=== PATIENT | female | born 1970 | race Caucasian/White ===

== ENCOUNTER 2016-12-04 18:42 | Emergency (ER) | payer MEDICAID ==
[~2016-12-04] VITALS: Ht 154.9 cm; Wt 65.8 kg
[2016-12-04 18:42] VITALS: BP 120/91; PULSE 74; RESP 18; TEMP 98.9; O2SAT 96
[2016-12-04] MEDS ORDERED: DIPHENHYDRAMINE INJ 50 MG/ML VIAL IVP ONE (19:15)
[2016-12-04] MEDS ORDERED: MORPHINE 4 MG/ML INJ. SYRINGE IVP ONE (19:15)
[2016-12-04 19:37] LABS: BASOPHILS % (AUTO) 0.6 % (0.0-2.0); EOSINOPHILS # (AUTO) 0.1 K/uL (0.0-0.4); EOSINOPHILS % (AUTO) 0.7 % (0.0-4.0); HEMOGLOBIN 9.8 g/dL (12.0-16.0); LYMPHOCYTES % (AUTO) 27.2 % (20.5-51.5); MEAN CORPUSCULAR HEMOGLOBIN 23 pg (27-31); MEAN CORPUSCULAR HGB CONC 31 % (32-36); MEAN CORPUSCULAR VOLUME 75 fL (79.0-98.0); MONOCYTES # (AUTO) 0.3 K/uL (0.0-1.0); MONOCYTES % (AUTO) 3.4 % (1.7-9.3); NEUTROPHILS # (AUTO) 5.1 K/uL (1.8-7.7); NEUTROPHILS % (AUTO) 68.1 % (40.0-70.0); PLATELET COUNT (AUTO) 337 K/uL (130-430); RED BLOOD CELL COUNT(AUTO) 4.29 MIL/uL (4.2-6.2); RED CELL DISTRIBUTION WIDTH 16.9 % (9.0-15.0); WHITE BLOOD COUNT (AUTO) 7.5 K/uL (4.8-10.8)
[2016-12-04 19:40] LABS: ANION GAP 9 (5-15); CHLORIDE 103 mmol/L (98-107); CREATININE 0.93 mg/dL (0.55-1.30); GLUCOSE 123 mg/dL (70-99); SODIUM SERUM 135 mmol/L (136-145); UREA NITROGEN, BLOOD 13 mg/dL (8-21)
[2016-12-04 19:41] LABS: PROTHROMBIN TIME 10.4 SECS (9.5-12.5)
[2016-12-04 19:42] LABS: GFR AFRICAN AMERICAN 84 mL/min (>90)
[2016-12-04 19:44] LABS: ALANINE AMINOTRANSFERASE 16 U/L (12-78); ALBUMIN 3.4 g/dL (3.4-4.8); ALCOHOL, BLOOD < 3 mg/dL (<10); ASPARTATE AMINOTRANSFERASE 15 U/L (10-37); LIPASE 105 U/L (73-393); TOTAL BILIRUBIN 0.3 mg/dL (0.0-1.0); TOTAL PROTEIN, SERUM 7.5 g/dL (6.4-8.3)
[2016-12-04 19:44] LABS: BILIRUBIN,URINE NEGATIVE (NEGATIVE); BLOOD, URINE 2+ (NEGATIVE); CLARITY/URINE CLOUDY (CLEAR); COLOR,URINE RED (YELLOW); GLUCOSE,URINE NEGATIVE (NEGATIVE); KETONES,URINE TRACE (NEGATIVE); NITRITE, URINE NEGATIVE (NEGATIVE); PROTEIN URINE 2+ (NEGATIVE)
[2016-12-04 19:47] LABS: LEUKOCYTE ESTERASE ,URINE 1+ (NEGATIVE)
[2016-12-04 19:49] LABS: BACTERIA,URINE MODERATE /HPF (None Seen); MUCUS,URINE 2+ /LPF (None Seen); RBC,URINE >100 /HPF (0-3)
[2016-12-04 19:53] LABS: BARBITURATE, URINE NEGATIVE (NEG <=200); BENZODIAZEPINE, URINE NEGATIVE (NEG <=150); CANNABINOID, URINE NEGATIVE (NEG <=50); COCAINE, URINE NEGATIVE (NEG <=150); METHAMPHETAMINES SCREEN,URINE POSITIVE (NEG <=500); OPIATE, URINE NEGATIVE (NEG <=100); PHENCYCLIDINE SCREEN,URINE NEGATIVE (NEG <=25); UR TRICYCLIC ANTIDEPRESSANTS NEGATIVE (NEG <=300); URINE AMPHETAMINE POSITIVE (NEG <=500); URINE METHADONE NEGATIVE (NEG <=200); URINE OXYCODONE SCREEN NEGATIVE (NEG <=100); URINE PROPOXYPHENE SCREEN NEGATIVE (NEG <=300)
[2016-12-04] MEDS ORDERED: KETOROLAC TROMETHAMINE 30 MG VIAL IVP ONE (20:00)
[2016-12-04 21:29] VITALS: BP 133/90; PULSE 78; RESP 18; TEMP 98; O2SAT 98
== END 2016-12-04 21:29 | disposition home or self-care (01) ==
LOC: SED 18:42
DX: N23 Unspecified renal colic (principal)
CPT/HCPCS: 36415; 71010; 74176; 80053; 80307; 81000; 81025; 83605; 83690; 85025; 85610; 87040; 96374; 96375; 99285; G0482; J1200; J1885; J2270

== ENCOUNTER 2024-02-27 14:04 | Emergency (ER) | payer SELFPAY ==
[~2024-02-27] VITALS: Ht 157.5 cm; Wt 63.5 kg
[2024-02-27 14:09] VITALS: BP_SYST 143; PULSE 85; RESP 18; TEMP 98.3; O2SAT 98
[2024-02-27] MEDS: IPRATROPIUM/ALBUTEROL SULFATE 3 ML AMPUL.NEB (DUONEB) INH ONE (14:41)
[2024-02-27 14:45] LABS: COVID19 ANTIGEN SOFIA FIA NEGATIVE (NEGATIVE)
[2024-02-27 14:50] LABS: INFLUENZA TYPE A Negative (NEGATIVE)
[2024-02-27 14:54] LABS: INFLUENZA TYPE B POSITIVE (NEGATIVE)
[2024-02-27] MEDS: guaiFENesin/DEXTROMETHORPHAN 10 ML UDC PO ONE (15:04)
[2024-02-27] MEDS: predniSONE 20 MG TABLET PO ONE (15:04)
[2024-02-27] MEDS: OSELTAMIVIR PHOSPHATE 75 MG CAPSULE PO ONE (15:04)
[2024-02-27] MEDS ORDERED: GUAI5SYR PO (15:26)
[2024-02-27] MEDS ORDERED: ALBMDI INH (15:26)
[2024-02-27] MEDS ORDERED: PRED20TA PO (15:26)
[2024-02-27] MEDS ORDERED: OSEL75CA PO (15:26)
[2024-02-27 16:21] VITALS: BP_SYST 143; PULSE 85; RESP 18; TEMP 98.3; O2SAT 96
== END 2024-02-27 15:55 | disposition home or self-care (01) ==
LOC: SED 14:04
DX: J10.1 Influenza due to other identified influenza virus with other respiratory manifestations (principal); J44.1 Chronic obstructive pulmonary disease with (acute) exacerbation; Z20.822 Contact with and (suspected) exposure to COVID-19; F17.210 Nicotine dependence, cigarettes, uncomplicated; I10 Essential (primary) hypertension
CPT/HCPCS: 99284; 71045; 87426; 36415; 94640; 87804 ×2; J7512; G9035

== ENCOUNTER 2024-03-20 22:44 | Emergency (ER) | payer MEDICAID ==
[~2024-03-20] VITALS: Ht 154.9 cm; Wt 64.4 kg
[~2024-03-20 22:44] MED LIST: ALBMDI INH; GUAI5SYR PO; OSEL75CA PO; PRED20TA PO
[2024-03-20 22:55] VITALS: BP_SYST 164; PULSE 88; RESP 17; TEMP 97.6; O2SAT 97
[2024-03-20 23:27] LABS: BILIRUBIN,URINE NEGATIVE (NEGATIVE); BLOOD, URINE 3+ (NEGATIVE); CLARITY/URINE SL CLOUDY (CLEAR); COLOR,URINE YELLOW (YELLOW); GLUCOSE,URINE NEGATIVE (NEGATIVE); KETONES,URINE NEGATIVE (NEGATIVE); LEUKOCYTE ESTERASE ,URINE TRACE (NEGATIVE); NITRITE, URINE NEGATIVE (NEGATIVE); PROTEIN URINE 2+ (NEGATIVE); UROBILINOGEN,URINE 0.2 (0.2-1.0)
[2024-03-21 00:02] LABS: BASOPHILS % (AUTO) 0.7 % (0.0-2.0); EOSINOPHILS # (AUTO) 0.1 K/uL (0.0-0.4); EOSINOPHILS % (AUTO) 1.6 % (0.0-4.0); HEMOGLOBIN 7.2 g/dL (12.0-16.0); LYMPHOCYTES # (AUTO) 2.5 K/uL (1.0-5.5); MEAN CORPUSCULAR HEMOGLOBIN 19 pg (27-31); MEAN CORPUSCULAR HGB CONC 30 % (32-36); MEAN CORPUSCULAR VOLUME 63 fL (79.0-98.0); MONOCYTES # (AUTO) 0.3 K/uL (0.0-1.0); MONOCYTES % (AUTO) 5.6 % (1.7-9.3); NEUTROPHILS # (AUTO) 2.6 K/uL (1.8-7.7); NEUTROPHILS % (AUTO) 47.1 % (40.0-70.0); PLATELET COUNT (AUTO) 435 K/uL (130-430); RED BLOOD CELL COUNT(AUTO) 3.82 MIL/uL (4.2-6.2); RED CELL DISTRIBUTION WIDTH 22.2 % (9.0-15.0); WHITE BLOOD COUNT (AUTO) 5.5 K/uL (4.8-10.8)
[2024-03-21 00:06] LABS: BACTERIA,URINE RARE /HPF (None Seen); RBC,URINE >100 /HPF (0-3)
[2024-03-21] MEDS: NACL 0.9% 1,000 ML IV ONE (00:10)
[2024-03-21 00:36] LABS: HCG,QUAL RESULT NEGATIVE (NEGATIVE)
[2024-03-21] MEDS: KETOROLAC TROMETHAMINE 30 MG VIAL IVP ONE (00:37)
[2024-03-21 00:43] LABS: BILIRUBIN,DIRECT 0.1 mg/dL (0.0-0.3); CALCIUM 8.4 mg/dL (8.4-11.0); CREATININE 0.91 mg/dL (0.55-1.30); POTASSIUM 3.1 mmol/L (3.5-5.1); TOTAL BILIRUBIN 0.6 mg/dL (0.0-1.0); TOTAL PROTEIN, SERUM 7.1 g/dL (6.4-8.3)
[2024-03-21] MEDS ORDERED: cloNIDine HCL 0.1 MG TABLET PO ONE (01:00)
[2024-03-21] MEDS ORDERED: ACET-2634 PO (02:15)
[2024-03-21] MEDS ORDERED: FER300L PO (02:15)
[2024-03-21 03:30] VITALS: BP_SYST 135; PULSE 82; RESP 18; TEMP 98.6; O2SAT 99
== END 2024-03-21 02:55 | disposition home or self-care (01) ==
LOC: SED 22:44
DX: N23 Unspecified renal colic (principal); N28.1 Cyst of kidney, acquired; D64.9 Anemia, unspecified; I10 Essential (primary) hypertension; Z79.899 Other long term (current) drug therapy; Z79.2 Long term (current) use of antibiotics
CPT/HCPCS: 99285; 74176; 80076; 80048; 81001; 84703; 83690; 85025; 36415; 81025; 96374; 96361; J1885; J7030; 81000; 81015

== ENCOUNTER 2024-04-04 17:26 | Emergency (ER) | payer MEDICAID ==
[~2024-04-04] VITALS: Ht 154.9 cm; Wt 63.5 kg
[~2024-04-04 17:26] MED LIST changes: +ACET-2634 PO; +FER300L PO
[2024-04-04 17:38] VITALS: BP_SYST 148; PULSE 93; RESP 18; TEMP 98.6; O2SAT 98
[2024-04-04] MEDS: KETOROLAC TROMETHAMINE 30 MG VIAL IM ONE (18:21)
[2024-04-04] MEDS ORDERED: IBUP-1969 PO (18:44)
[2024-04-04] MEDS ORDERED: DICL20GE TP (18:44)
[2024-04-04 20:00] VITALS: BP_SYST 148; PULSE 93; RESP 18; TEMP 98.6; O2SAT 98
== END 2024-04-04 20:00 | disposition home or self-care (01) ==
LOC: SED 17:26
DX: S20.211A Contusion of right front wall of thorax, initial encounter (principal); I10 Essential (primary) hypertension; Z79.899 Other long term (current) drug therapy; Z79.2 Long term (current) use of antibiotics; Y04.0XXA Assault by unarmed brawl or fight, initial encounter; Y93.89 Activity, other specified; Y92.89 Other specified places as the place of occurrence of the external cause; Y99.8 Other external cause status
CPT/HCPCS: 99284; 71045; 71100; 96372; J1885